=== PATIENT | female | born 1950 | race African-American/Black ===

== ENCOUNTER → 2023-10-06 | Day surgery (SDC) | payer OTHER ==
--- NOTE | 2023-10-06 11:16 | RAD REPORT ---
EXAM DESCRIPTION: US - Breast Core BX w/US Guidance - 10/06/2023 10:55 am CLINICAL HISTORY: ICD N63.20 breast mass COMPARISON: Outside ultrasound TECHNIQUE: The risks, benefits alternatives to the procedure were explained to the patient and infor med consent obtained. Skin, subcutaneous and deeper tissues anesthetized with lidocaine. Under sonographic guidance, three 14 gauge vacuum assisted core biopsies of the mass within the lower left breast obtained. 2 centimeter specimens taken. Tissue given to pathology. Subsequently a localizing clip was placed into the mass. Patient experienced no immediate complication IMPRESSION: Vacuum assisted core biopsies of the left breast mass
== END ==
LOC: DS 09:21
PROVIDERS: ATTEND Surgery
DX: C50.912 Malignant neoplasm of unspecified site of left female breast (principal); Z17.0 Estrogen receptor positive status [ER+]
CPT/HCPCS: 19083; 88304; 88305

== ENCOUNTER 2023-11-07 05:37 | Day surgery (SDC) | payer OTHER ==
[2023-11-07] MEDS ORDERED: NA CHLORIDE 0.9% 1,000 ML ONE (06:18)
[2023-11-07] MEDS ORDERED: CEFAZOLIN SODIUM 2 GM/VIAL ONE (06:18)
[2023-11-07 07:04] LABS: Absolute Lymphocytes (CBC) 2.4 K/uL (0.7-4.9); Hematocrit 39.6 % (36.0-45.0); Lymphocytes % 46.1 % (15.3-44.8); MCV 82.9 fL (80-100); MPV 9.6 fL (7.6-11.3); Platelets 168 thou/uL (152-406); RBC Red Blood Cell Count 4.78 M/uL (3.86-4.86)
[2023-11-07 07:12] LABS: Albumin 3.7 g/dL (3.4-5.0); Bilirubin Total 0.3 mg/dL (0.2-1.0); Protein, Total 7.6 g/dL (6.4-8.2)
[2023-11-07 07:13] LABS: Potassium 3.5 mEq/L (3.5-5.1)
--- NOTE | 2023-11-07 07:52 | RAD REPORT ---
EXAM DESCRIPTION: RAD - Chest Pa And Lat (2 Views) - 11/07/2023 6:47 am CLINICAL HISTORY: PREOP COMPARISON: No comparisons FINDINGS: Lines: None. Lungs: No evidence of edema or pneumonia. Pleural: No significant pleural effusions or pneumothorax. Cardiac: The heart size is within normal limits. Mediastinum: Within normal limits. Bones: No acute fractures. Other: None IMPRESSION: No acute cardiopulmonary disease.
--- NOTE | 2023-11-07 08:14 | RAD REPORT ---
EXAM DESCRIPTION: NM - Lymphoscintigraphy - 11/07/2023 7:47 am CLINICAL HISTORY: Breast cancer. COMPARISON: None. TECHNIQUE: 2 injections of 261 uCi Lymphoseek administered into the the leonid arerolar region of the left breast. The injections were placed at the lateral and medial aspect of the nipple at 0650 on 10/17 01/06. Subsequently a scintigram was obtained which demonstrated the radiotracer within these locations. IMPRESSION: Left breast lymphoscintigram
[2023-11-07] MEDS ORDERED: METHYLENE BLUE 1% 10 ML VIAL ONE (08:39)
[2023-11-07] MEDS ORDERED: LIDOCAINE HCL/EPINEPHRINE 20 ML MDV ONE (08:40)
[2023-11-07] MEDS ORDERED: BUPIVACAINE 0.25% PF 30 ML VIAL ONE (08:40)
[2023-11-07] MEDS ORDERED: ONDANSETRON 4 MG/2 ML VIAL ONE (09:58)
[2023-11-07] MEDS ORDERED: FENTANYL CITR 100 MCG/2 ML ONE (09:58)
[2023-11-07] MEDS ORDERED: propofoL 200 MG/20 ML VIAL IV ONE (09:58)
[2023-11-07] MEDS ORDERED: LIDOCAINE 2% MPF 5 ML VIAL ONE (09:59)
[2023-11-07] MEDS ORDERED: HYDROMORPHONE HCL 2 MG/ML inj ONE (10:13)
[2023-11-07] MEDS ORDERED: SUCCINYLCHOLINE 20 MG/ML (10 ML) IV ONE (10:14)
[2023-11-07] MEDS ORDERED: dexAMETHasone 10 MG/ML VIAL ONE (10:33)
[2023-11-07] MEDS ORDERED: EPHEDRINE SULF 50 MG/ML VIAL ONE (10:36)
--- NOTE | 2023-11-07 12:42 | P.OP ---
Preoperative diagnosis: LEFT Breast Cancer Postoperative diagnosis: LEFT Breast Cancer Primary procedure: Needle Localized LEFT Breast Lumpectomy with sentinel lymph node biopsy Anesthesia: GETA + Local Estimated blood loss: <10cc Specimen: LEFT Breast Mass, [place] lymph nodes x2 Findings: 2 sentinel lymph nodes Complications: None Transferred to: Recovery Room Condition: Good
[2023-11-07 14:10] VITALS: BP 153/73
[2023-11-07] MEDS ORDERED: HYDROCODONE/APAP 7.5/325 MG TAB ONE (14:11)
[2023-11-07] MEDS ORDERED: HYDROCODONE/APAP 7.5/325 MG TAB PO ONE (14:13)
[2023-11-07 15:11] VITALS: TEMP 97; O2SAT 95
--- NOTE | 2023-11-07 17:48 | EKG ---
Test Date: 2023-11-07 Test Time: 07:32:14 Job Placement Counselor: ELLIE MEASUREMENT RESULTS: Intervals: Rate: 83 UT: 268 QRSD: 92 QT: 394 QTc: 462 Dubois: P: 62 UT: 268 QRS: 14 T: 32 INTERPRETIVE STATEMENTS: Sinus rhythm with 1st degree AV block Cannot rule out Anterior infarct, age undetermined Abnormal ECG Compared to ECG 05/11/2006 21:13:33 First degree AV block now present Myocardial infarct finding now present Electronically Signed On 11-07-23 17:47:43 COLOR REPAIRER by Shamir Mckay
--- NOTE | 2023-11-07 20:21 | OP ---
Date of Procedure: 11/07/2023 Surgeon: Osorio Lehman MD, Preoperative Diagnosis: Left breast cancer. Postoperative Diagnosis: Left breast cancer. Procedure Performed: Needle localized left breast lumpectomy with sentinel lymph node biopsy. Anesthesia: General endotracheal plus local with 0.25% Marcaine. Estimated Blood Loss: Less than 10 cc. Specimen: Left breast mass and sentinel lymph node x2. Findings: 2 sentinel lymph nodes met criteria for removal. Complications: None. Disposition: The patient transferred to recovery room in good condition. Procedure In Detail: After informed consent was obtained, patient was brought to the operating room, prepped and draped in the usual sterile fashion after adequate anesthesia was achieved. I injected an area in the periareolar area with methylene blue and massaging of the breast tissue toward the lef t axilla was performed for approximately 5 minutes allowing for lymphatic uptake. The patient had pr eoperative lymphoscintigraphy by Radiology. Please see their notes for full details regarding the ly mphoscintigraphy as well as needle localized wire placement in the preoperative period. After the ma ssaging was completed of the tissue to allow for lymphatic uptake, I noted the wire to be in the appr opriate location at approximately the 8 o'clock position 13 to 14 cm away from the nipple areolar com plex. I made an elliptical incision for approximately 4.5 to 5 cm down through subcutaneous tissues. I then dissected down following the course of the wire for preoperative mapping to circumferentiall y remove a lump of breast tissue all the way to the prepectoral fascia. At this point, this was orie nted with a short stitch superior, long lateral and the deep margin was inked. This was then sent of f with the wire intact for pathologic examination. The wire was not seen through its course througho ut the entire procedure and remained deep within the tissue. At this point, I irrigated the area and closed the deep dermal plane after achieving hemostasis easily with electrocautery using 3-0 Vicryl in an interrupted fashion and skin was closed with a 4-0 Monocryl in a running fashion. After confir mation, negative margins were achieved by Dr. Alexander. Dermabond was then placed over top. I then tu rned my attention to the axillary region. As I said before, lymphoscintigraphy was performed, we too k measurements throughout the entire procedure using the gamma probe. Please see note for full detai ls regarding gamma probe details. I localized an area of the left axilla along an axillary crease wh ere counts were found to be in the 300 range. I made an incision after appropriately anesthetizing t he skin following the hairline in the left axilla down to subcutaneous tissues using a 15 blade. I t hen dissected down with electrocautery to dissect down through the fatty tissue planes and I then per formed dissection using a combination of blunt dissection as well as electrocautery to break through into the axillary fascia, fascial plane using the gamma probe as a guidance throughout the procedure. The gamma probe did have an incident whereby the sterile condom which was plastic base tore and thi s was removed. The area was irrigated with Betadine copiously and a Betadine gauze was packed and le ft in the wound for a few moments and then the area was irrigated once again and the dissection suzanne nued down to expose a hot lymph node at this point with a reading in the obviously elevated range and the lymph node was blue. This was dissected circumferentially around the lymph node channels leadin g to it was clipped using a medium clip ship erector and it was sent off for pathologic examination. I th en dissected to find an additional hot lymph node which was also very blue adjacent to this lymph nod e along the same axillary chain. This was also similarly dissected circumferentially around. Clips were placed on the feeding lymphatic channels and this was removed and sent off for pathologic examin ation. The axillary background was then checked with the gamma probe and found to be very low and th ere was no other evidence of any other lymph nodes of involvement either by palpation or with gamma p robe examination. The area was then copiously irrigated. Deep planes were closed using interrupted 3-0 Vicryl sutures. Deep dermal plane was closed with 3-0 Vicryl in an interrupted fashion and skin was closed with a 4-0 Monocryl in a running fashion. Dermabond was placed over the top, once Dr. Irma Alexander ensured us that the touch preps were negative for any evidence of lymph node metastatic dise ase. As these lymph nodes were negative, at this point, there was no need to proceed with any additi onal axillary dissection and the patient tolerated the procedure well without incident or complicatio n, transferred to PACU in good condition after sterile dressing was applied. All counts were correct at the end of the case. TENA/BING Voice ID: [id number] Report ID: [id number]
== END 2023-11-07 14:52 | disposition home or self-care (01) ==
LOC: OR 05:37
PROVIDERS: ATTEND Surgery
PROC: 0HBU0ZZ Excision of Left Breast, Open Approach (ICD-10-PCS; principal; 2023-11-07 10:30)
PROC: 07B60ZX Excision of Left Axillary Lymphatic, Open Approach, Diagnostic (ICD-10-PCS; 2023-11-07 10:30)
DX: C50.512 Malignant neoplasm of lower-outer quadrant of left female breast (principal); I10 Essential (primary) hypertension; E11.9 Type 2 diabetes mellitus without complications; E78.00 Pure hypercholesterolemia, unspecified; Z17.0 Estrogen receptor positive status [ER+]
CPT/HCPCS: 19301; 38500; 93005; 85025; 36415; 82947 ×2; 88307; 88333; 80053; 71046; 76942; 78195; J2704; J2001; J1170; J3010; J1100; J2405; J7030; A9520; 88304